=== PATIENT | male | born 2000 | race Caucasian/White ===

== ENCOUNTER 2024-02-05 12:09 | Emergency (ER) | payer MEDICAID, OTHER ==
[~2024-02-05] VITALS: Ht 180.3 cm; Wt 160.4 kg
[2024-02-05 12:24] VITALS: BP 150/93; PULSE 85; RESP 16; TEMP 97.3; O2SAT 98
[2024-02-05] MEDS ORDERED: CYCL-837 PO (13:44)
[2024-02-05] MEDS ORDERED: NAPR-746 PO (13:44)
[2024-02-05] MEDS ORDERED: LIDO5DIS21 TOP (13:45)
[2024-02-05] MEDS: KETOROLAC TROMETH 60MG/2ML VIAL IM ONE (14:02)
== END 2024-02-05 14:13 | disposition home or self-care (01) ==
LOC: ER 12:09
DX: S33.5XXA Sprain of ligaments of lumbar spine, initial encounter (principal); X50.1XXA Overexertion from prolonged static or awkward postures, initial encounter; Y93.E2 Activity, laundry; Y92.89 Other specified places as the place of occurrence of the external cause; Y99.8 Other external cause status
CPT/HCPCS: 96372; 99283; J1885

== ENCOUNTER 2025-06-14 10:42 | Emergency (ER) | payer BC, MEDICAID ==
[~2025-06-14] VITALS: Ht 180.3 cm; Wt 165.6 kg
[~2025-06-14 10:42] MED LIST: CYCL-837 PO; LIDO5DIS21 TOP; NAPR-746 PO
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
[2025-06-14 12:20] VITALS: BP 145/94; PULSE 88; RESP 20; TEMP 97.2; O2SAT 97
== END 2025-06-14 12:41 | disposition home or self-care (01) ==
LOC: ER 10:42
DX: S46.911A Strain of unspecified muscle, fascia and tendon at shoulder and upper arm level, right arm, initial encounter (principal); Z79.899 Other long term (current) drug therapy; V43.52XA Car driver injured in collision with other type car in traffic accident, initial encounter; Y93.89 Activity, other specified; Y92.488 Other paved roadways as the place of occurrence of the external cause; Y99.8 Other external cause status
CPT/HCPCS: 73030